=== PATIENT | male | born 1965 | race Native Hawaiian/Other Pacific Islander ===

== ENCOUNTER 2017-07-03 10:41 | Outpatient (CLI) | payer OTHER | END 2017-07-03 22:26 | disposition home or self-care (01) | LOC: RAD 10:41 | DX: J44.9 Chronic obstructive pulmonary disease, unspecified (principal) ==

== ENCOUNTER 2017-07-06 17:44 | Emergency (ER) | payer OTHER ==
[~2017-07-06] VITALS: Ht 195.6 cm; Wt 93.0 kg
[2017-07-06 18:51] LABS: PLATELET COUNT 280 K/uL (142-355)
[2017-07-06 19:02] LABS: POTASSIUM 4.1 mmol/L (3.6-5.2)
[2017-07-06 22:54] VITALS: BP 143/92; TEMP 98.6
== END 2017-07-06 22:10 | disposition short-term general hospital (02) ==
LOC: ED 17:44
DX: K35.80 Unspecified acute appendicitis (principal); K80.20 Calculus of gallbladder without cholecystitis without obstruction
CPT/HCPCS: 36415; 80053; 81000; 85027; 96365; 99284; J0295; Q9963

== ENCOUNTER 2017-07-06 22:40 | Outpatient (CLI) | payer OTHER | END 2017-07-06 23:40 | disposition short-term general hospital (02) | LOC: AMB 22:40 | DX: K35.80 Unspecified acute appendicitis (principal); K80.20 Calculus of gallbladder without cholecystitis without obstruction | CPT/HCPCS: A0425; A0427 ==

== ENCOUNTER 2018-05-08 16:53 | Inpatient (IN) | payer OTHER ==
[~2018-05-08] VITALS: Ht 195.6 cm; Wt 90.0 kg
[2018-05-08 18:32] LABS: POTASSIUM 3.5 mmol/L (3.6-5.2)
[2018-05-08 18:38] LABS: PLATELET COUNT 424 K/uL (142-355)
[2018-05-08 18:50] VITALS: BP 127/89; TEMP 98.3; Ht 195.6 cm; Wt 90.0 kg
[2018-05-08 20:00] VITALS: BP 118/86; TEMP 99.4
[2018-05-09] VITALS: BP 99/69; TEMP 98.6
[2018-05-09 04:12] VITALS: BP 93/57; TEMP 98.6
[2018-05-09 08:00] VITALS: BP 105/68; TEMP 98
[2018-05-09 12:00] VITALS: BP 112/79; TEMP 98.3
[2018-05-09 16:00] VITALS: BP 113/66; TEMP 98.3
[2018-05-09 20:00] VITALS: BP 127/76; TEMP 100.8
[2018-05-10] VITALS (7 sets, daily range): BP systolic 110–143; BP diastolic 59–84; TEMP 97.7–98.9
[2018-05-10 06:07] LABS: POTASSIUM 3.8 mmol/L (3.6-5.2)
[2018-05-10 06:23] LABS: PLATELET COUNT 213 K/uL (142-355)
[2018-05-11 04:00] VITALS: BP 136/88; TEMP 98.1
[2018-05-11 05:22] LABS: PLATELET COUNT 646 K/uL (142-355)
[2018-05-11 08:00] VITALS: BP 128/72; TEMP 97.9
[2018-05-11 12:00] VITALS: BP 140/84; TEMP 97.7
== END 2018-05-11 16:20 | disposition home or self-care (01) | DRG 178 ==
LOC: MED/SURG 16:53
PROVIDERS: ADMIT Family Medicine
DX: J15.211 Pneumonia due to Methicillin susceptible Staphylococcus aureus (principal); J44.0 Chronic obstructive pulmonary disease with (acute) lower respiratory infection; R50.81 Fever presenting with conditions classified elsewhere; K21.9 Gastro-esophageal reflux disease without esophagitis; E03.8 Other specified hypothyroidism; J44.9 Chronic obstructive pulmonary disease, unspecified; M15.8 Other polyosteoarthritis; E78.49 Other hyperlipidemia
CPT/HCPCS: 36415; 36600; 80053; 82550; 82805; 83735; 83880; 84100; 84484; 85007; 85027; 87040; 87070; 87077; 87185; 87186; 87205; 87502; 93005; 94640; 94664; 94668; 94760; 96365; 96366; 96367; J0456; J0696; J2930

== ENCOUNTER 2018-05-30 12:00 | Outpatient (CLI) | payer OTHER | END 2018-05-30 22:24 | disposition home or self-care (01) | LOC: RAD 12:00 | DX: J12.89 Other viral pneumonia (principal) ==